=== PATIENT | female | born 1990 | race Caucasian/White ===

== ENCOUNTER 2022-03-05 11:45 | Emergency (ER) | payer OTHER ==
[~2022-03-05] VITALS: Ht 154.9 cm; Wt 84.4 kg
[~2022-03-05 11:45] MED LIST: PRENATAL TABLE1 EAC1 PO
[2022-03-05] MEDS ORDERED: SINUS RINSE ST1 EACH NASAL (17:16)
[2022-03-05] MEDS ORDERED: ZYRTEC10 M3 PO (17:16)
[2022-03-05] MEDS ORDERED: FLONASE ALLERG9.9 ML NASAL (17:16)
== END 2022-03-05 17:25 | disposition home or self-care (01) ==
LOC: ER 11:45
DX: J06.9 Acute upper respiratory infection, unspecified (principal); B34.9 Viral infection, unspecified